=== PATIENT | male | born 1985 | race Caucasian/White ===

== ENCOUNTER → 2020-06-19 07:27 | Outpatient (BNVA) | payer BC, SELFPAY | PROVIDERS: Family Provider Nurse Practitioner Family; PCP Nurse Practitioner Family; Visit Provider Nurse Practitioner | DX: F43.12 Post-traumatic stress disorder, chronic (principal); F32.1 Major depressive disorder, single episode, moderate | CPT/HCPCS: 99214 ==

== ENCOUNTER → 2020-08-02 07:53 | Outpatient (BNVA) | payer BC, SELFPAY | PROVIDERS: Family Provider Nurse Practitioner Family; PCP Nurse Practitioner Family; Visit Provider Nurse Practitioner | DX: F43.12 Post-traumatic stress disorder, chronic (principal); F32.1 Major depressive disorder, single episode, moderate | CPT/HCPCS: 99214 ==

== ENCOUNTER → 2020-09-13 08:17 | Outpatient (BNVA) | payer BC, SELFPAY | PROVIDERS: Family Provider Nurse Practitioner Family; PCP Nurse Practitioner Family; Visit Provider Nurse Practitioner | DX: F43.12 Post-traumatic stress disorder, chronic (principal); F32.1 Major depressive disorder, single episode, moderate | CPT/HCPCS: 99214 ==

== ENCOUNTER 2020-09-28 11:09 | Emergency (ER) | payer BC, MEDICAID, SELFPAY ==
[2020-09-28 11:12] VITALS: BP 131/91; PULSE 116; RESP 18; TEMP 36.6; O2SAT 97; BMI 38.0
--- NOTE | 2020-09-28 11:16 | XRR_ITS ---
PROCEDURE INFORMATION: Exam: XR Right Humerus Exam date and time: 09/28/2020 11:17 AM Age: 35 years old Clinical indication: Injury or trauma; Fall; Blunt trauma (contusions or hematomas); Arm, upper; Right TECHNIQUE: Imaging protocol: XR Right humerus. Views: 2 or more views. COMPARISON: No relevant prior studies available. FINDINGS: Bones/joints: Negative for acute bony abnormality. Soft tissues: Normal. XR/[place] [id number] IMPRESSION: No acute findings.
--- NOTE | 2020-09-28 11:16 | XRR_ITS ---
PROCEDURE INFORMATION: Exam: XR Right Shoulder Exam date and time: 09/28/2020 11:17 AM Age: 35 years old Clinical indication: Injury or trauma; Fall; Blunt trauma (contusions or hematomas); Shoulder; Right; Additional info: [place] pain TECHNIQUE: Imaging protocol: XR Right shoulder. Views: 2 or more views. COMPARISON: No relevant prior studies available. FINDINGS: Bones/joints: Negative for acute bony abnormality. Soft tissues: Normal. XR/XR shoulder RT min 2V* [id number] IMPRESSION: No acute findings.
--- NOTE | 2020-09-28 11:18 | ED_ITS ---
HPI - Fall General: Chief Complaint: Fall Stated Complaint: FELL, INJURED R SHOULDER History of Present Illness: HPI Narrative: The patient is a 35-year-old male with no significant past medical history who comes to the ER complaining of right shoulder pain after a fall yesterday. He said he fell and caught himself with his right arm and his arm got stretched backwards over his head he says his shoulder has hurt since. He has not taken any medications for this. MD complaint: fall Fall from: standing Loss of consciousness: None Prolonged down time: no Symptoms prior to fall: none Context: tripped/slipped Severity: moderate Quality: sharp Associated symptoms-after fall: Reports no associated symptoms; Denies abdominal pain, chest pain, confusion, difficulty walking, headache(s) or neck pain Review of Systems General: Reports: 10 or more systems reviewed and unremarkable except in HPI and below Const: Denies: fatigue Eyes: Denies: change in vision, blurry vision or eye redness ENMT: Denies: throat pain, swelling of lips/tongue, ear or mastoid pain or nasal congestion Card: Denies: chest pain, palpitations, irregular heart rhythm, edema, dyspnea on exertion or orthopnea Resp: Denies: dyspnea, productive cough or non-productive cough GI: Denies: abdominal pain, diarrhea or GI cramping : Denies: flank pain, urinary frequency or urinary urgency Musc: Denies: neck pain, back pain, extremity pain, joint pain, joint redness, limited range of motion or muscle weakness Skin/Breast: Denies: rash, pruritus, erythema, skin pain or skin tenderness Neuro: Denies: headache(s), numbness in extremities, weakness in extremities, sensory changes, difficulty walking, dizziness, confusion or Slurred speech present Psych: Denies: anxiety or depression Endo: Denies: polyuria All/Imm: Denies: urticaria, throat swelling or tongue swelling PFSH ED PFSH: Medical History (Updated 07/04/19 @ 09:54 by PIERCE Godinez) Major depressive disorder, single episode, moderate Post-traumatic stress disorder, chronic Social History (Updated 09/28/20 @ 11:17 by Jeanne Madison RN) Smoking and tobacco status: current every day smoker cigarettes Quit status (tobacco): not considering quitting Second hand smoke exposure: No Smoking risk assessment/counseling performed?: Yes Tobacco counseling given: counseling >3 minutes Desire information about alcohol rehabilitation?: No Counseling given: No Substance/Drug Use: never Physical Exam Const: COMMON NORMALS: no acute distress, average body habitus, patient oriented x3, no limitations, healthy appearing, alert and well nourished GENERAL APPEARANCE: cooperative, comfortable, well kempt and well developed ORIENTATION/CONSCIOUSNESS: Yes awake, Yes oriented to person, Yes oriented to place and Yes oriented to time HENMT: COMMON NORMALS: normocephalic, external ears normal and Normal external nose present HEAD & SCALP: normal to inspection and normocephalic NOSE: Normal external nose present EXTERNAL EAR: Yes external ears normal MOUTH: Normal oral and palatal mucosa present THROAT: posterior oropharynx normal Eye: COMMON NORMALS: Equal, round and reactive pupils present and EOMs intact bilaterally GENERAL EYE: appearance normal, both eyes and all related structures PUPIL: Yes Equal, round and reactive pupils present Neck/C-Spine: COMMON NORMALS: full ROM, no lymphadenopathy, no meningeal signs and no JVD GENERAL: Yes normal visual inspection Lymph: LYMPHATIC: no lymphadenopathy noted Chest: COMMONS NORMALS: normal inspection of the chest and normal palpation of entire chest wall Resp: COMMON NORMALS: normal respiratory effort, No retractions, No use of accessory muscles, clear to auscultation bilaterally and percussion normal EFFORT & INSPECTION: Yes able to speak in complete sentences AUSCULTATION: clear to auscultation bilaterally PERCUSSION: percussion normal Cardio: COMMON NORMALS: no JVD, regular rate, regular rhythm, S1 normal heart sound present, S2 normal heart sound present and Peripheral pulses 2+ throughout RATE: regular rate RHYTHM: regular rhythm HEART SOUNDS: S1 normal heart sound present and S2 normal heart sound present PERIPHERAL PULSES: Peripheral pulses 2+ throughout GI: COMMON NORMALS: Normal to inspection, nondistended, normoactive bowel sounds present, Soft to palpation, non-tender and no masses INSPECTION: Yes normal to inspection PALPATION: Yes Soft to palpation : COMMON NORMALS: Yes no CVA tenderness BLADDER/KIDNEY EXAM: Yes no CVA tenderness Back/Pelvis: COMMON NORMALS: no CVA tenderness, thoracic and lumbar spine normal to inspection, no thoracic nor lumbar tenderness and thoraco-lumbar ROM normal Extremity: COMMON NORMALS: normal to inspection, full ROM, capillary refill normal, no joint enlargement and no pedal edema NARRATIVE EXTREMITY EXAM: The patient has right shoulder pain at the AC joint and inferiorly. Neurovascularly intact distal to injury. GENERAL: Yes normal exam except as noted Neuro: COMMON NORMALS: patient oriented x3, CN's II-XII intact bilaterally, moves all extremities, no focal motor deficits, no sensory deficits noted and gait normal SENSORIUM/ORIENTATION: Yes alert, Yes oriented to person, Yes oriented to place and Yes oriented to time MENINGEAL SIGNS: Yes no meningeal signs Psych: COMMON NORMALS: mental status grossly normal, Normal thought process present, cooperative, normal affect and speech normal APPEARANCE: Yes well kempt ATTITUDE: Yes calm SPEECH: Yes normal speech THOUGHT PROCESS: Normal thought process present Skin: COMMON NORMALS: no rashes or lesions noted GENERAL SKIN EXAM: no rash es or lesions noted Course Vital Signs: Vital signs: Vital Signs Temperature 97.9 F 09/28/20 11:12 Pulse Rate 116 H 09/28/20 11:12 Respiratory Rate 18 09/28/20 11:12 Blood Pressure 131/91 09/28/20 11:12 Pulse Oximetry 97 09/28/20 11:12 MDM - Fall MDM Narrative: Medical decision making narrative: Patient came in complaining of right shoulder pain after a fall. X-rays are negative for fracture. Recommended he take ibuprofen, Flexeril and follow-up with primary care physician in a week to monitor improvement. MRI at that time if still in pain. ER with worsening symptoms Discharge Plan Discharge Patient Disposition: Home Condition: Stable Prescriptions: New cyclobenzaprine 5 mg tablet 5 mg PO TID PRN (Reason: muscle spasm) Qty: 15 RF: 0 No Action diazepam 10 mg tablet 10 mg PO BID PRN (Reason: anxiety) Qty: 60 RF: 1 fluoxetine [Prozac] 40 mg capsule 40 mg PO DAILY Qty: 30 RF: 1 Discharge Orders: Discharge ED (Routine); Ordered 09/28/20 Ordered By: Joe Conway Referrals: Nessa Perez APN [Primary Care Provider] - Discharge Diet: Advance as tolerated Discharge Activity: Resume usual activity Patient Instructions: Shoulder Sprain (ED), Opioid Safety Activity Restrictions/Additional Instructions: You have come in for shoulder pain after a fall. X-rays are normal. Please take the muscle relaxer to help with your pain and also take ibuprofen at home maximum 800 mg three times a day with food. If you're still having pain in a week talk to your primary care doctor about getting an MRI of the shoulder. Return to the ER at anytime with worsening symptoms. Otherwise follow-up with your primary care doctor next week. Coding Level of Care Code ED Lining Feller Blindstitch for Danie Fwd Exam Comprehensive
[2020-09-28] MEDS: ibuprofen 800 mg tablet PO (11:28)
[2020-09-28 12:39] VITALS: BP 101/63; PULSE 85; RESP 16; O2SAT 97
== END 2020-09-28 12:40 | disposition home or self-care (01) ==
PROVIDERS: Emergency Provider Family Medicine; PCP Nurse Practitioner Family
DX: M25.511 Pain in right shoulder (principal); F17.210 Nicotine dependence, cigarettes, uncomplicated
CPT/HCPCS: 73030; 73060; 99283

== ENCOUNTER 2020-10-21 13:41 | Outpatient (CLI) | payer BC, MEDICAID, SELFPAY ==
--- NOTE | 2020-10-21 13:45 | MR_ITS ---
WS: [id number] MRI RIGHT SHOULDER HISTORY: M25.511 - Pain in right shoulder COMPARISON: RIGHT shoulder radiograph 09/28/2020 TECHNIQUE: Multiplanar sequences of the shoulder joint are submitted. Mild AC joint hypertrophy. Mild soft tissue and osseous encroachment upon the supraspinatus muscle an d tendon. There is mild deformity. No AC ligament sprain. No os acromion. Biceps tendon in normal pos ition. No rotator cuff muscle atrophy or edema. There is a lobulated cystic mass measuring 3.3 x 3.2 cm in t he spinoglenoid notch. These are often seen with labral tears. There is abnormal increased signal not ed in the posterior labrum. Closely associated with the spinoglenoid notch cyst. There may actually b e partial avulsion of the glenoid. Mild tendinopathy in the supraspinatus. No rotator cuff tears. MR/MR shoulder RT wo con* [id number] IMPRESSION: 1. Spinoglenoid notch cyst. These are often associated with a labral tear. Giovana pect there is a tear within the posterior labrum. 2. No rotator cuff tear. 3. Mild AC joint arthritis. 4. At this time no edema or atrophy of the rotator cuff muscles.
== END 2020-10-21 13:42 | disposition home or self-care (01) ==
LOC: RADSHAW 13:46
PROVIDERS: PCP Nurse Practitioner Family; Visit Provider Nurse Practitioner Family
DX: M25.511 Pain in right shoulder (principal); M13.811 Other specified arthritis, right shoulder
CPT/HCPCS: 73221

== ENCOUNTER → 2021-02-05 08:14 | Outpatient (BNVA) | payer BC, MEDICAID, SELFPAY | PROVIDERS: PCP Nurse Practitioner Family; Visit Provider Specialist | DX: M67.411 Ganglion, right shoulder (principal); G56.21 Lesion of ulnar nerve, right upper limb; F17.210 Nicotine dependence, cigarettes, uncomplicated | CPT/HCPCS: 95886; 95908; 99202 ==

== ENCOUNTER → 2021-02-06 11:12 | Outpatient (BNVA) | payer BC, MEDICAID, SELFPAY | PROVIDERS: PCP Nurse Practitioner Family; Referring Provider Orthopaedic Surgery; Visit Provider Specialist | DX: M67.411 Ganglion, right shoulder (principal); M79.7 Fibromyalgia; F17.210 Nicotine dependence, cigarettes, uncomplicated | CPT/HCPCS: 20550; 95860; 99202 ==

== ENCOUNTER → 2021-04-28 09:56 | Outpatient (BNVA) | payer BC, MEDICAID, SELFPAY | PROVIDERS: PCP Nurse Practitioner Family; Visit Provider Orthopaedic Surgery | DX: Z20.822 Contact with and (suspected) exposure to COVID-19 (principal); M67.411 Ganglion, right shoulder | CPT/HCPCS: 87635 ==

== ENCOUNTER 2021-05-01 05:50 | Day surgery (SDC) | payer BC, MEDICAID, SELFPAY ==
[2021-04-30 13:28] VITALS: BMI 36.8
[2021-05-01] VITALS (13 sets, daily range): BP systolic 129–171; BP diastolic 69–103; PULSE 70–105; RESP 16–28; TEMP 36.3–36.8; O2SAT 94–100
[2021-05-01] MEDS: acetaminophen 500 mg Tablet 1000 MG PO (06:34)
[2021-05-01] MEDS: sodium chloride 0.9% 1,000 ML 30 ML IV (06:34)
--- NOTE | 2021-05-01 06:48 | P.HP_ITS ---
Same Day Surgery H&P Indication for Procedure/HPI DATE OF PROCEDURE: May 01, 2021 CHIEF COMPLAINT/INDICATIONFOR SURGICAL PROCEDURE: Para labral cyst right shoulder here for debridement cyst and labral repair PREOP DIAGNOSIS: . Ganglion right shoulder PLANNED PROCEDRUE: Operation Date: 05/01/21 07:50 Proposed Procedures p Shoulder Arthroscopy [id number] M67.411(Right) - Magan Saez MD s Excision Of Ganglion Cyst(Right) - Magan Saez MD s SLAP Repair(Right) - Magan Saez MD 35-year-old male with shoulder pain since late August. An MRI revealed a large para labral cyst. EMG nerve conduction studies showed corresponding abnormal activity in the infraspinatus muscle EMG studies. Patient here for d ecompression cyst and likely labral repair Medications/Allergies* Allergies/Adverse Reactions Allergy/AdvReac Type Severity Reaction Status Date / Time No Known Allergies Allergy Verified 04/01/21 12:04 Current Medications: Generic Name Dose Route Start Last Admin Trade Name Freq PRN Reason Stop Dose Admin Sodium Chloride 1,000 mls @ 30 mls/hr 05/01/21 06:00 05/01/21 06:34 Sodium Chloride 0.9% IV 05/02/21 05:59 30 mls/hr .Q24H DIVINA Administration Pertinent History/Comorbid Conditions* Medical History (Updated 02/06/21 @ 18:41 by Mary Alvarez MD) Major depressive disorder, single episode, moderate Post-traumatic stress disorder, chronic Social History Quit status (tobacco): not considering quitting Second hand smoke exposure: No Smoking risk assessment/counseling performed?: Yes Tobacco counseling given: counseling >3 minutes Desire information about alcohol rehabilitation?: No Counseling given: No Pertinent Exam Findings alert, oriented x 3, clear to auscultation bilaterally and regular rate & rhythm Recommendations Surgery/Procedure today Coding Level of Care Code Acute Chip Loft Worker for Danie Spence
--- NOTE | 2021-05-01 07:23 | ANES.PREANE2 ---
Pre-Anesthetic Assessment Pre-Anesthetic Assessment: Height/Weight: Height 1.7 m Weight 106.594 kg Temp Pulse Resp BP Pulse Ox 98.2 F 73 18 129/84 98 05/01/21 06:01 05/01/21 06:01 05/01/21 06:01 05/01/21 06:01 05/01/21 06:01 Preop Diagnosis: . Ganglion right shoulder Proposed Procedure: Operation Date: 05/01/21 07:50 Proposed Procedures p Shoulder Arthroscopy [id number] M67.411(Right) - Magan Saez MD s Excision Of Ganglion Cyst(Right) - Magan Saez MD s SLAP Repair(Right) - Magan Saez MD Was Beta Anne taken within 24 hours: N/A Was Clonidine taken within 24 hours: N/A Last intake: Intake Last Liquid Date 04/30/21 Last Liquid Time 21:00 Last Solid Date 04/30/21 Last Solid Time 20:00 Social: Social History: No alcohol and No tobacco Exam: Pre-Anes Outpt Exam: alert, oriented x 3, clear to auscultation bilaterally and regular rate & rhythm Airway: Submandibular: WNL Cervical ROM: WNL MP: 2 Dentition: Full Metabolic: Metabolic: Morbid obesity Neuropsych: Neuropsych: Depression and Neuropathy Anesthetic Plan: ASA status: 2 Anesthesia: General and Regional (specify below) (Right interscalene nerve blk) Risk of > 500 ml blood loss (7ml/kg in children): No Meds/Allergies Current Medications: Current Medications Generic Name Dose Route Start Last Admin Trade Name Freq PRN Reason Stop Dose Admin Sodium Chloride 1,000 mls @ 30 ml s/hr 05/01/21 06:00 05/01/21 06:34 Sodium Chloride 0.9% IV 05/02/21 05:59 30 mls/hr .Q24H DIVINA Administration PFSH Anesthesia PFSH: Medical History Major depressive disorder, single episode, moderate Post-traumatic stress disorder, chronic Social History Quit status (tobacco): not considering quitting Second hand smoke exposure: No Smoking risk assessment/counseling performed?: Yes Tobacco counseling given: counseling >3 minutes Desire information about alcohol rehabilitation?: No Counseling given: No Data Anesthesia Cardiac Studies: No Data to Display
--- NOTE | 2021-05-01 07:24 | ANES.PROC ---
Anesthesia Procedures Procedure/Date: 05/01/21 Nerve Block ^: Nerve Block 1: Main Anesthesia: general anesthesia Time Out Performed: Yes Consent: requested by attending/covering physician, from patient, risks and benefits reviewed and patient agrees to proceed Nerve block location: interscalene (right) Anesthesia monitors applied: pulse oximetry, EKG, BP cuff and oxygen Nerve block position: semi sitting Anesthetic Used: ropivicaine 0.5% Amount of anesthesia used (mL): 30 Ultrasound used to: recognize landmarks Nerve Stimulator Used?: No Interscalene/Femoral BLK: 2 stimuplex 22 g needle used for position and inplane approach, visualize local anesthetic spread and no vascular puncture identified Injection: neg aspiration of heme Patient Tolerated Procedure: well Complications: none
[2021-05-01] MEDS: EPINEPHrine 1 mg/mL INJ 2 MG (08:59)
--- NOTE | 2021-05-01 10:30 | PM.OP ---
Operative Report Date of procedure: May 01, 2021 Pre-op Diagnosis: Para labral cyst/ganglion right shoulder Post-op diagnosis: same Post-op Findings: The patient had degenerative tearing of his posterior superior labrum. Ganglion cyst was identified medial to the tear Procedure Done: Arthroscopic debridement para labral cyst right shoulder, arthroscopic right posterior superior labral repair Pathology: none sent Surgeon: Magan Saez Anesthesia: General and Nerve Block (Interscalene block) Estimated blood loss (mL): 5 Findings: The patient had a degenerative tearing of his posterior superior labrum from approximately the 9:00 to the 11 o'clock position. Attachments four-port to the glenoid neck area and dissection with a rasp did bring this down to a collection of hemosiderin stained yellow ganglion fluid Condition: stable Disposition: PACU Procedure: The patient was taken to the operating room after he was given an interscalene block. He was given a general anesthesia and positioned in the lateral position with his right arm in 15 pounds of traction. A timeout was performed. A posterior portal was made 2 cm inferior and medial to the posterior corner of the acromion. The glenohumeral joint was entered. The anterior structures appeared intact and initial probing of the posterior superior labrum revealed a poor degenerative type attachment. The scope was then moved to the anterior portal. An accessory posterior portal was made in a more lateral position to allow better access to the labrum. Initially a Olguin [employer] Nephew Werewolf probe was used to debride the labrum back to stable tissue. Working with a meniscal rasp dissection was accomplished down the posterior glenoid working medially and anteriorly ganglion cyst fluid was encountered. The rasp was then passed into this space agitating and mobilizing the ganglion fluid. Next at the 9 o'clock position a Olguin [employer] Nephew Q fix 1.8 mm anchor was placed. A arthroappears BirdBeak was used to retract one of the sutures through the labrum in that position securing it to the glenoid. A second anchor was placed in approximately 10:30 position and a suture secured around the labrum in that area in identical fashion. The shoulder was irrigated with saline. Portals were closed with 3-0 Prolene. Sterile dressings were applied. The patient was extubated and taken to recovery room in stable condition.
--- NOTE | 2021-05-01 10:43 | ANE.PACU2 ---
Inpatient post-anesthesia follow up: Airway intact: Yes Vital signs: Temperature 98.2 F Pulse Rate 73 Respiratory Rate 18 Blood Pressure 129/84 Pulse Oximetry 98 Oxygen Delivery Me thod Room Air Oxygen Flow Rate 8 Fraction of Inspir ed Oxygen Hydration adequate: Yes Nausea and vomiting: No Pain level: 1 Mental status: Baseline
--- NOTE | 2021-05-01 10:45 | SUR.PHASEI ---
1035 PT TO PACU SLEEPY WITH LMA IN PLACE 8L MASK TO LMA, PT DOES NOT AWAKE TO TOUCH OR VOICE, PT NOW RESTLESS AND COUGHING, LMA OUT, PT QUICKLY BACK TO SLEEPS WITH GOOD RESP EFFORT NOTED. VSS 1045 PT SLEEPS WITH SNORING RESP SATS 100% ON 8L MASK , NO S/S OF PAIN, VSS, RT ARM IN SLING, RT SHOULDER DRESSING D/I FIRST ICE TO SITE, DISTAL FINGERS PINK WARM WITH CAP REFILL LESS THAN 3 SECONDS.
--- NOTE | 2021-05-01 10:56 | SUR.PHASEI ---
PT AWAKES FOR VERY SHORT PERIOD, PT DENIES PAIN AND NAUSEA, PT MOVES FINGERS SLIGHTLY TO COMMAND THEN QUICKLY BACK TO SLEEP PT REMOVED O2 MASK , WILL LEAVE PT ON RA TRIAL.
[2021-05-01] MEDS: ondansetron 2 mg/ML SDV 2 mL 4 MG IVP (11:19)
[2021-05-01] MEDS: naloxone 0.4 mg/ml SDV 0.1 MG IVP (12:00)
--- NOTE | 2021-05-01 13:14 | ANE.PACU2 ---
Inpatient post-anesthesia follow up: Airway intact: Yes Vital signs: Temperature 97.7 F Pulse Rate 78 Respiratory Rate 16 Blood Pressure 159/99 Pulse Oximetry 95 Oxygen Delivery Me thod Room Air Oxygen Flow Rate 8 Fraction of Inspir ed Oxygen Hydration adequate: Yes Nausea and vomiting: Yes Pain level: 3 Mental status: Baseline
== END 2021-05-01 12:35 | disposition home or self-care (01) ==
PROVIDERS: PCP Nurse Practitioner Family; Visit Provider Orthopaedic Surgery
PROC: (CPT 29805; principal; 2021-05-01 07:50)
PROC: (CPT 29807; 2021-05-01 07:50)
PROC: (CPT 29807; 2021-05-01 07:50)
DX: M67.411 Ganglion, right shoulder (principal); E66.01 Morbid (severe) obesity due to excess calories; Z68.36 Body mass index [BMI] 36.0-36.9, adult; F32.9 Major depressive disorder, single episode, unspecified; F17.210 Nicotine dependence, cigarettes, uncomplicated
CPT/HCPCS: 29807; 96374; 96375; C1713; J0171; J0690; J2250; J2310; J2370; J2405; J2704; J2795; J3010; J3490; J7030

== ENCOUNTER → 2022-04-01 09:06 | Outpatient (BNVA) | payer BC, MEDICAID, SELFPAY | PROVIDERS: PCP Nurse Practitioner Family; Visit Provider Nurse Practitioner Family | DX: R53.83 Other fatigue (principal); F32.A Depression, unspecified; R06.2 Wheezing; K21.9 Gastro-esophageal reflux disease without esophagitis; R14.0 Abdominal distension (gaseous); Z13.6 Encounter for screening for cardiovascular disorders | CPT/HCPCS: 74018; 80053; 80061; 84403; 84443; 85025; 86618; 86666; 86757 ==

== ENCOUNTER → 2023-12-27 11:09 | Outpatient (BNVA) | payer BC, MEDICAID, SELFPAY | PROVIDERS: PCP Nurse Practitioner Family; Visit Provider Family Medicine | DX: Z02.4 Encounter for examination for driving license (principal) | CPT/HCPCS: 81000 ==